=== PATIENT | female | born 1990 | race Caucasian/White ===

== ENCOUNTER 2016-10-25 09:55 | Inpatient (IN) | payer BC ==
[~2016-10-25] VITALS: Ht 162.6 cm; Wt 69.0 kg
[2016-10-25] VITALS (9 sets, daily range): BP systolic 104–127; BP diastolic 66–74; PULSE 70; RESP 16–18; TEMP 97.9–98.2; O2SAT 94–100
[~2016-10-25 09:55] MED LIST: IRON18TA PO; LACT1CAP70 PO; PREN-116 PO; VEDO300V INJ
[2016-10-25] MEDS ORDERED: FAMOTIDINE 20mg IVPB 50 ML IV ONE (10:00)
[2016-10-25] MEDS ORDERED: LIDOCAINE 1% (10mg/ml) 2ml SDV ID PRN (10:00)
[2016-10-25] MEDS ORDERED: CITRIC ACID/SODIUM CITRATE 30 ML PO ONE (10:00)
[2016-10-25] MEDS ORDERED: CEFAZOLIN 2 GM in D5W 50ml 50 ML IV ONE (10:00)
[2016-10-25] MEDS: LR 1,000 ML IV PRN ×2 (10:43→11:47)
[2016-10-25 10:52] LABS: BASOPHILS % (AUTO) 0.3 % (0-2); EOSINOPHILS % (AUTO) 0.2 % (0-4); HCT - HEMATOCRIT 36.6 % (36-46); IMMATURE GRANULOCYTE # (AUTO) 0.03 T/MM3 (0.00-0.03); IMMATURE GRANULOCYTE % (AUTO) 0.3 % (0.0-0.5); LYMPHOCYTES # (AUTO) 2.4 T/MM3 (1-4.8); LYMPHOCYTES % (AUTO) 21.4 % (23-45); MEAN CORPUSCULAR HGB 29.5 UUG (26-34); MEAN CORPUSCULAR HGB CONC(MCHC 32.8 GM/DL (31-37); MEAN CORPUSCULAR VOLUME 89.9 UM3 (80-100); MEAN PLATELET VOLUME 12.2 UM3 (9.4-12.4); MONOCYTES # (AUTO) 0.5 T/MM3 (0-0.8); MONOCYTES % (AUTO) 4.7 % (0-9.0); NEUTROPHILS #(AUTO)-ABSOLUTE 8.2 T/MM3 (1.8-7.7); NEUTROPHILS % (AUTO) 73.1 % (33-66); RED BLOOD COUNT 4.07 M/MM3 (4.00-5.20); WBC - WHITE BLOOD COUNT 11.2 T/MM3 (4.5-11.0)
[2016-10-25] MEDS ORDERED: MORPHINE SULFATE PF 5mg/10ml VL (DURAMORPH) ONE (11:43)
[2016-10-25] MEDS ORDERED: FENTANYL 100mcg/2ml INJECTION ONE (11:44)
--- NOTE | 2016-10-25 12:34 | ANESOB ---
Epidural/ Date/Time DATE: 10/25/16 TIME: 1105 Preop Diagnosis Procedure: Plan: Spinal Height: 5 ' 4.00 " Weight: 69.000 kg BMI: kg/m2 P:1 Medications & Allergies Inpatient Medications Current Medications Medications (Trade) Dose Ordered Sig/Michelle Start Time Stop Time Status Last Admin Dose Admin Lactated Ringer's (Lactated Ringers) 1,000 ml @ 150 mls/hr [id number] PRN 10/25/16 09:59 10/25/16 11:47 150 MLS/HR Lidocaine HCl (Xylocaine 1%) 0.2 mg PRN PRN 10/25/16 10:00 Iron (Iron) Unknown Strength Tablet, 1 TAB PO DAILY, (Reported) Last Taken: on 10/15/16 0800 Lactobacillus Acidophilus-NMC (Probiotic-NMC) 1 Each Capsule, 1 CAP PO DAILY, (Reported) Last Taken: on 10/24/16 2200 Pnv95/Ferrous Fumarate/FA ( Multivitamins Tablet) 1 Each Tablet, 1 TAB PO DAILY, (Reported) Last Taken: on 10/24/16 2200 Vedolizumab (Entyvio) 300 Mg Vial, 1 VIAL INJ [id number], (Reported) Last Taken: on 10/10/16 1000 Discontinued Medications Metoclopramide HCl (Reglan) 10 Mg Tablet, 10 MG PO QID PRN for n/v/cramps Discontinued Reason: Medication Stopped Prednisone (Prednisone) 20 Mg Tablet, 20 MG PO DAILY Discontinued Reason: Medication Stopped [Calcium] , 1 TAB PO DAILY, (Reported) Coded Allergies: No Known Allergies (Unverified , 11/26/15) Medical/Surgical History Anesthesia PMH: Reports: (Breech), Reflux, Denies: *Angina, *Diabetes , *Dyspnea, *Hypertension, *CA, Anesthesia Reactions, Arthritis, Asthma, Bld Transfusion Reaction, CHF, COPD, CVA/Stroke/TIA, Cancer, Clotting Problems, Dysrythmia, Glaucoma, Hepatitis, Hiatal Hernia, Malignant Hyperthermia, Pacemaker, Pneumonia, Renal Disease, Seizures, Sleep Apnea, Thyroid Disease, Tuberculosis Smoking Status: Former smoker Does patient use chewing tobac: No Second Hand Exposure: No Substance Use Type: does not use Alcohol Intake: none Anesthesia Adverse Reactions: FOUND none Family Hx of Anesthesia Advers: none Hx of Motion Sickness: No Complications During : No Pertinent Findings Laboratory Tests 10/25/16 10:44 Physical Exam Respiratory: Lungs clear Cardiovascular: Regular rate, rhythm Airway Assessment Mallampati Score: II TMD: 3 Fingerbreadths Neck Extension: Good Overall Assessment: May Be Diff Intubation ASA: 2 Discussion Discussed risks/options/alternatives of anesthesia. Patient consents. Nursing pain assessment noted. Attestation Statement Prior to the delivery of any anesthetic medication, I examined the patient, developed the plan, obtained the patient's consent and discussed the risk and benefits of the procedure with the patient/guardian. If the note happens to be signed after anesthesia start time, it is only due to providing efficient care of the patient and documenting at a time when the computer is available. MORRIS COLLADO FRUIT WASHER Oct 25, 2016 12:34
[2016-10-25] MEDS ORDERED: NALOXONE 0.4mg/ml INJECTION IV PRN (12:45)
[2016-10-25] MEDS ORDERED: DiphenhydrAMINE 50 MG/ML INJECTION IV PRN (12:45)
[2016-10-25] MEDS ORDERED: ONDANSETRON 4mg/2ml INJECTION IV PRN (12:45)
[2016-10-25] MEDS ORDERED: NALBUPHINE 10mg/ml INJECTION IV PRN (12:45)
[2016-10-25] MEDS ORDERED: METOCLOPRAMIDE 10mg/2ml INJECTION IV PRN (12:45)
[2016-10-25] MEDS ORDERED: OXYTOCIN 30 UNIT in D5LR 500 ML IV SCH (13:06)
[2016-10-25] MEDS ORDERED: D5LR 1,000 ML IV SCH (13:06)
--- NOTE | 2016-10-25 13:06 | OPNOTEPD ---
Operative Note Date of Operation Date of Operation: 10/25/16 General : 2 Para: 1 Gestation (Weeks): 39 Gestation (Days): 0 Preoperative Diagnosis Other (Breech presentation) Postoperative Diagnosis Same as preoperative dx Procedure Primary, Low-transverse Surgeon Suni Morejon MD Brusher Angela Lee MD Anesthesia Anesthesia Provider: Sammy Florence CRNA Anesthesia Type: spinal Complications No Complications: No complications Estimated Blood Loss 700 cc Findings viable male, clear fluids, normal uterus, normal adenexa APGARS Weight 3242 grams Name Frank Naylor Indications Breech presentation at term gestation Description of Procedure The patient was taken to the operating room where adequate anesthesia as described above was obtained. A Pfannenstiel skin incision was made with the scalpel and carried down to the fascia. Hemostasis was achieved along the way with Bovie cautery. The fascia was incised and the rectus muscles in the midline. The peritoneum was entered bluntly and incised superiorly and inferiorly taking care to avoid the bowel and bladder. A bladder blade was inserted and a bladder flap was created. A low transverse uterine incision was made as described above and the was delivered in the breech position ( while using the Mauriceau maneuver to facilitate delivery of the head). Mouth and nares were bulb suctioned, the cord was clamped and cut, and the infant was handed to the side sawyer. The placenta was delivered and the uterine cavity examined. The uterine incision was closed in a running-lock fashion with #0-monocryl. Hemostasis was confirmed. The peritoneal layer was then reapproximated with 2-0 vicryl. The fascia was closed with two 0-vicryl sutures meeting in the midline and the subcutaneous tissue was reapproximated with 2-0 vicryl suture. The skin was closed with 4-0 monocryl in subcuticular fashion and a sterile dressing was applied. The patient taken to the recovery room in satisfactory condition. Needle, sponge, and instrument counts were correct. There were no surgical and anesthetic complications. SUNI MOREJON MD Oct 25, 2016 13:06
[2016-10-25] MEDS ORDERED: CALCIUM CARBONATE 500mg Chewable TAB PO PRN (13:15)
[2016-10-25] MEDS ORDERED: DiphenhydrAMINE 25 MG CAPSULE PO PRN (13:15)
[2016-10-25] MEDS ORDERED: IBUPROFEN 800 MG TABLET PO PRN (13:15)
[2016-10-25] MEDS ORDERED: MILK OF MAGNESIA 30 ML SUSP PO PRN (13:15)
[2016-10-25] MEDS ORDERED: ACETAMINOPHEN 500 MG TABLET PO PRN (13:15)
[2016-10-25] MEDS ORDERED: HYDROCORTISONE 2.5% CREAM 30 GM RECTALLY PRN (13:15)
--- NOTE | 2016-10-25 17:21 | PNPDOC ---
Prog Note 10/25/16 POD#0 s/p pLTCS for breech presentation, normal EBL. Doing well, no complaints. Pain is well controlled at this time. NAD AFVSS Continue routine post-op care. Questions solicited and answered. RAEANN MOREJON MD Oct 25, 2016 17:21
[2016-10-25] MEDS: SIMETHICONE 80 MG CHEWABLE TABLET PO CHEW SCH ×2 (19:05→22:00)
[2016-10-26] VITALS (11 sets, daily range): BP systolic 109–136; BP diastolic 67–87; PULSE 66–78; RESP 16; TEMP 97.6–98.5; O2SAT 97–99
--- NOTE | 2016-10-26 01:27 | NUR ---
Chart Check 24 hour chart check completed
--- NOTE | 2016-10-26 02:56 | NUR ---
SHIFT SUMMARY: This RN assumed care at 2300. VSS, pt's pain controlled with PO Tylenol. Urinary wolfe to dependent drain, adequate urine output noted. Pt moving in bed by self. Pt requests to have SCD's removed because they are hot and itchy. RN explains propose of SCD's and complies with pt's wishes. and pt providing baby's cares and bonding with baby appropriately.
[2016-10-26] MEDS: HYDROCODONE/APAP 5 mg/325 mg TABLET PO PRN ×5 (03:48→19:28)
[2016-10-26 05:16] LABS: HCT - HEMATOCRIT 37.7 % (36-46); HGB - HEMOGLOBIN 12.4 GM/DL (12-16); MEAN CORPUSCULAR HGB 29.8 UUG (26-34); MEAN CORPUSCULAR HGB CONC(MCHC 32.9 GM/DL (31-37); MEAN CORPUSCULAR VOLUME 90.6 UM3 (80-100); MEAN PLATELET VOLUME 12.8 UM3 (9.4-12.4); RED BLOOD COUNT 4.16 M/MM3 (4.00-5.20); WBC - WHITE BLOOD COUNT 13.4 T/MM3 (4.5-11.0)
--- NOTE | 2016-10-26 07:45 | PNPDOC ---
Progress Note PPD1 Rubella: Immune GBS: Not Done/No Results Blood Type:O pos Subjective 10/26/16 Lochia: Minimal Pain: Controlled Voiding: Voiding Nausea and Vomiting: No Nausea/Vomiting Objective Vital Signs Date Time Temp Pulse Resp B/P Pulse Ox O2 Delivery O2 Flow Rate FiO2 10/26/16 04:24 98.5 78 16 136/87 99 Room Air Urine Output: Good General: Alert and Oriented Abdomen: Fundus Firm, Non-tender, Non-distended Incision: Clean/Dry/Intact, No Erythema Edema: None Laboratory Item Value Date Time Hemoglobin 12.0 GM/DL 10/25/16 1044 Hemoglobin 12.4 GM/DL 10/26/16 0413 Assessment SP, Primary C/S Plan Routine Care, Continue PNV RAEANN MOREJON MD Oct 26, 2016 07:45
[2016-10-26] MEDS: SIMETHICONE 80 MG CHEWABLE TABLET PO CHEW SCH ×3 (08:00→18:50)
[2016-10-26] MEDS: DOCUSATE CALCIUM 240 MG CAPSULE PO SCH (09:00)
--- NOTE | 2016-10-26 14:07 | NUR ---
Shift summary Patient up and about caring for self and baby. Pain controlled with Townsend 1 tab at a time. IV, SCDs, Aguila discontinued. Voiding without difficulty. Tolerating regular diet. Has showered. Bonding well with baby. has been at bedside and has been helpful.
[2016-10-27] MEDS: HYDROCODONE/APAP 5 mg/325 mg TABLET PO PRN ×3 (01:13→09:38)
--- NOTE | 2016-10-27 02:22 | NUR ---
Chart Check 24 hour chart check completed
--- NOTE | 2016-10-27 02:24 | NUR ---
SHIFT SUMMARY: VSS, pt's pain controlled with PO Osborn 5. Fundus firm at 1below umbilicus, light lochia noted. Incision CESAR, steri strips intact and no s/s of infection. Pt up ad litzy, voiding and completing own personal cares. General diet tolerated. Bonding and caring for baby appropriately. Fawad in room and supportive. Baby currently in nursery to allow pt and to sleep.
[2016-10-27 05:30] VITALS: BP 133/89; PULSE 68; RESP 18; TEMP 98.3
--- NOTE | 2016-10-27 09:09 | PNPDOC ---
Progress Note PPD2 Rubella: Immune GBS: Neg Blood Type:O pos Subjective 10/27/16 Lochia: Minimal Pain: Controlled Voiding: Voiding Objective Vital Signs Date Time Temp Pulse Resp B/P Pulse Ox O2 Delivery O2 Flow Rate FiO2 10/27/16 05:30 68 18 10/27/16 05:30 98.3 133/89 Room Air 10/26/16 16:32 99 Urine Output: Good General: Alert and Oriented Abdomen: Fundus Firm, Non-tender Incision: Clean/Dry/Intact, No Erythema Extremities: Non-tender Assessment (1) Status post primary low transverse section Plan: Routine Care, Discharge Home, Continue PNV GWEN BAUMAN MD Oct 27, 2016 09:09
[2016-10-27] MEDS ORDERED: HYDR-4246 PO (09:14)
[2016-10-27] MEDS: SIMETHICONE 80 MG CHEWABLE TABLET PO CHEW SCH (09:37)
[2016-10-27] MEDS: DOCUSATE CALCIUM 240 MG CAPSULE PO SCH (09:37)
== END 2016-10-27 10:17 | disposition home or self-care (01) | DRG 765 ==
LOC: MC 09:55
PROVIDERS: ADMIT Obstetrics & Gynecology; ATTEND Obstetrics & Gynecology
PROC: 10D00Z1 Extraction of Products of Conception, Low, Open Approach (ICD-10-PCS; principal; 2016-10-25 12:12)
DX: O32.1XX0 Maternal care for breech presentation, not applicable or unspecified (principal); O99.62 Diseases of the digestive system complicating childbirth; K50.90 Crohn's disease, unspecified, without complications; O99.02 Anemia complicating childbirth; D64.9 Anemia, unspecified; Z3A.39 39 weeks gestation of pregnancy; Z37.0 Single live birth
CPT/HCPCS: 36415; 85025; 85027; 86850; 86900; 86901